=== PATIENT | female | born 1980 | race American Indian/Alaskan Native ===

== ENCOUNTER 2019-09-14 17:07 | Emergency (ER) | payer SELFPAY ==
--- NOTE | 2019-09-14 19:41 | Event Note ---
ED Screening Note Date of service: 09/14/19 Time: 19:39 ED Screening Note: 39 y o f presents with swelling , pain and redness to left inner thigh x 5 days This initial assessment/diagnostic orders/clinical plan/treatment(s) is/are subject to change based on patients health status, clinical progression and re- assessment by fellow clinical providers in the ED. Further treatment and workup at subsequent clinical providers discretion. Patient/guardian urged not to elope from the ED as their condition may be serious if not clinically assessed and managed. Initial orders include: acc eval I & D?
[2019-09-14] MEDS ORDERED: SULFAMETHOXAZOLE/TRIMETHOPRIM 800/160MG DS TAB PO ONE (21:36)
[2019-09-14] MEDS ORDERED: IBUPROFEN 600 MG TAB PO ONE (21:36)
[2019-09-14] MEDS ORDERED: ACETAMINOPHEN 500 MG TAB PO ONE (21:36)
[2019-09-14] MEDS ORDERED: ONDANSETRON 4 MG ODT TAB PO ONE (21:36)
--- NOTE | 2019-09-14 22:11 | Emergency Department Report ---
ED General Adult HPI - General Chief complaint: Skin/Abscess/Foreign Body Stated complaint: SPIDER BITE Source: patient Mode of arrival: Ambulatory Limitations: No Limitations - History of Present Illness Initial comments: Patient is a 39-year-old -[place] female with no past medical history presents to the ED with content of acute onset persistent severely painful eryt hematous maculopapular nonfluctuant rash on left medial thigh for 3 days after a suspected insect bite. Patient states that the pain has worsened in the last 2 days. Patient also states that the redness has spread marginally around the rash in the last 12 hours after she tried to squeeze and apply pressure to debride the rash. Patient denies fever, chills, nausea, vomiting, dizziness, headache, chest pain, numbness and tingling or weakness of left leg, cough, traumatic injury, or change in vision. MD Complaint: left medial thigh swollen erythematous painful rash -: Sudden, days(s) (3) Location: lower extremity (medial left thigh) Radiation: non-radiation Severity scale (0 -10): 6 Quality: burning, aching, sharp Consistency: constant Improves with: none Worsens with: movement Associated Symptoms: denies other symptoms, loss of appetite, malaise, rash (swollen erythematous maculopapular nonfluctuant rash). denies: confusion, chest pain, cough, diaphoresis, fever/chills, headaches, nausea/vomiting, seizure, shortness of breath, syncope, weakness Treatments Prior to Arrival: none - Related Data Home Medications Medication Instructions Recorded Confirmed Last Taken Sulfamethoxazole/Trimethoprim 2 each PO QDAY 06/07/15 06/07/15 Unknown [Bactrim 400-80 mg] Previous Rx's Medication Instructions Recorded Last Taken Type oxyCODONE /ACETAMINOPHEN [Percocet 1 tab PO Q6HR PRN #20 tablet 06/09/15 Unknown Rx 5/325] hydrOXYzine HCL [Hydroxyzine HCl] 25 mg PO Q6H PRN #20 tablet 03/05/16 Unknown Rx predniSONE [Deltasone] 20 mg PO QDAY #5 tab 03/05/16 Unknown Rx Clindamycin [Clindamycin CAP] 300 mg PO Q8HR #60 capsule 09/14/19 Unknown Rx Ondansetron [Zofran Odt] 4 mg PO Q6H PRN #15 tab.rapdis 09/14/19 Unknown Rx Sulfamethoxazole/Trimethoprim 1 each PO Q12H #20 tablet 09/14/19 Unknown Rx [Bactrim DS TAB] traMADoL [Ultram] 50 mg PO Q6HR PRN #12 tablet 09/14/19 Unknown Rx Allergies Allergy/AdvReac Type Severity Reaction Status Date / Time No Known Allergies Allergy Verified 03/05/16 14:50 ED Review of Systems ROS: Stated complaint: SPIDER BITE Other details as noted in HPI Constitutional: denies: chills, fever Eyes: denies: eye pain, eye discharge, vision change ENT: denies: ear pain, throat pain Respiratory: denies: cough, shortness of breath, wheezing Cardiovascular: denies: chest pain, palpitations Endocrine: no symptoms reported Gastrointestinal: denies: abdominal pain, nausea, diarrhea Genitourinary: denies: urgency, dysuria, discharge Musculoskeletal: arthralgia (painful swollen erythematous macular papular nonfluctuant rash on the left medial thigh). denies: back pain, joint swelling Skin: rash, change in color, other (erythematous maculopapular nonfluctuant rash on left medial thigh). denies: lesions Neurological: denies: headache, weakness, paresthesias Psychiatric: denies: anxiety, depression Hematological/Lymphatic: denies: easy bleeding, easy bruising ED Past Medical Hx - Past Medical History Previous Medical History?: Yes Hx Hypertension: No Hx Congestive Heart Failure: No Hx Diabetes: No Hx Deep Vein Thrombosis: No Hx Renal Disease: No Hx Sickle Cell Disease: No Hx Seizures: No Hx Asthma: No Hx COPD: No Hx HIV: No Additional medical history: collapsed lung (RIGHT). spontaneous pneumothorax x 3 - Surgical History Past Surgical History?: Yes Hx Breast Surgery: Yes (CYST REMOVED RIGHT BREAST) Additional Surgical History: "right lung surgery" - Social History Smoking Status: Never Smoker Substance Use Type: None - Medications Home Medications: Home Medications Medication Instructions Recorded Confirmed Last Taken Type Sulfamethoxazole/Trimethoprim 2 each PO QDAY 06/07/15 06/07/15 Unknown History [Bactrim 400-80 mg] oxyCODONE /ACETAMINOPHEN [Percocet 1 tab PO Q6HR PRN #20 tablet 06/09/15 Unknown Rx 5/325] hydrOXYzine HCL [Hydroxyzine HCl] 25 mg PO Q6H PRN #20 tablet 03/05/16 Unknown Rx predniSONE [Deltasone] 20 mg PO QDAY #5 tab 03/05/16 Unknown Rx Clindamycin [Clindamycin CAP] 300 mg PO Q8HR #60 capsule 09/14/19 Unknown Rx Ondansetron [Zofran Odt] 4 mg PO Q6H PRN #15 tab.rapdis 09/14/19 Unknown Rx Sulfamethoxazole/Trimethoprim 1 each PO Q12H #20 tablet 09/14/19 Unknown Rx [Bactrim DS TAB] traMADoL [Ultram] 50 mg PO Q6HR PRN #12 tablet 09/14/19 Unknown Rx ED Physical Exam - General Limitations: No Limitations General appearance: alert, in no apparent distress - Head Head exam: Present: atraumatic, normocephalic, normal inspection - Eye Eye exam: Present: normal appearance, PERRL, EOMI Pupils: Present: normal accommodation - ENT ENT exam: Present: normal exam, normal orophraynx, mucous membranes moist, TM's normal bilaterally, normal external ear exam - Neck Neck exam: Present: normal inspection, full ROM - Respiratory Respiratory exam: Present: normal lung sounds bilaterally. Absent: respiratory distress, wheezes, rales, rhonchi, chest wall tenderness, accessory muscle use, decreased breath sounds, prolonged expiratory - Cardiovascular Cardiovascular Exam: Present: normal rhythm, tachycardia, normal heart sounds. Absent: systolic murmur, diastolic murmur, rubs, gallop - GI/Abdominal GI/Abdominal exam: Present: soft, normal bowel sounds. Absent: tenderness, guarding, hyperactive bowel sounds - Extremities Exam Extremities exam: Present: normal inspection, full ROM, tenderness (moderately tender left medial thigh due to erythematous maculopapular nonfluctuant rash), normal capillary refill - Back Exam Back exam: Present: normal inspection, full ROM. Absent: tenderness, CVA tenderness (R), muscle spasm - Neurological Exam Neurological exam: Present: alert, oriented X3, CN II-XII intact, normal gait, reflexes normal - Psychiatric Psychiatric exam: Present: normal affect, normal mood - Skin Skin exam: Present: warm, dry, intact, rash (erythematous maculopapular nonfluctuant rash on left medial thigh), erythema ED Course Vital Signs 09/14/19 09/14/19 19:38 21:46 Temperature 99 F Pulse Rate 104 H Respiratory 18 18 Rate Blood Pressure 104/74 O2 Sat by Pulse 100 Oximetry ED Medical Decision Making - Medical Decision Making This is a 39-year-old [place] female with no past medical history who presented to the ED with acute onset persistent painful swollen erythematous maculopapular nonfluctuant rash on left medial thigh for 3 days. In the ED, patient is alert and oriented 3 and is not in distress, anxious and tachycardic in triage. Patient was treated in the ED with oral antibiotics and pain medications and the rash was cleaned and dressed appropriately. Patient was started home on oral antibiotics and pain medications and was advised to follow- up with her primary care physician in 7-10 days for reevaluation or return to the ED immediately if symptoms get worse. - Differential Diagnosis cellulitis; folliculitis; abscess Critical care attestation.: If time is entered above; I have spent that time in minutes in the direct care of this critically ill patient, excluding procedure time. ED Disposition Clinical Impression: Cellulitis of left thigh, Acute folliculitis, Abscess of left leg Disposition: DC-01 TO HOME OR SELFCARE Is pt being admited?: No Does the pt Need Aspirin: No Condition: Stable Instructions: Cellulitis (ED), Abscess (ED), Folliculitis (ED) Additional Instructions: Take medication with food, drink plenty of fluids and follow-up with your primary care physician in 7-10 days for reevaluation. Return to the ED immediately if symptoms get worse. Prescriptions: Sulfamethoxazole/Trimethoprim [Bactrim DS TAB] 1 each PO Q12H #20 tablet Clindamycin [Clindamycin CAP] 300 mg PO Q8HR #60 capsule traMADoL [Ultram] 50 mg PO Q6HR PRN #12 tablet PRN Reason: Pain Ondansetron [Zofran Odt] 4 mg PO Q6H PRN #15 tab.rapdis PRN Reason: Nausea Referrals: URIAH CRONIN MD [Staff Physician] - 7-10 days Time of Disposition: 22:09 Print Language: LATVIAN
[2019-09-14 22:28] VITALS: BP 121/80
== END 2019-09-14 22:25 | disposition home or self-care (01) ==
LOC: ED 17:07
DX: L02.416 Cutaneous abscess of left lower limb (principal); L73.8 Other specified follicular disorders; Z98.890 Other specified postprocedural states; Z79.899 Other long term (current) drug therapy
CPT/HCPCS: Q0162